=== PATIENT | male | born 2000 | race Caucasian/White ===

== ENCOUNTER 2019-01-05 15:43 | Emergency (ER) | payer OTHER ==
[~2019-01-05] VITALS: Ht 177.8 cm; Wt 75.0 kg
[2019-01-05 17:27] VITALS: BP 128/80
[2019-01-05] MEDS ORDERED: LIDOCAINE 5% TRANSDERMAL PATCH TD ONE (18:45)
[2019-01-05] MEDS ORDERED: KETOROLAC TROMETHAMINE 30 MG/ML VIAL IM ONE (18:45)
== END 2019-01-05 19:51 | disposition home or self-care (01) ==
LOC: EMS 15:43
DX: S62.512A Displaced fracture of proximal phalanx of left thumb, initial encounter for closed fracture (principal); S62.317A Displaced fracture of base of fifth metacarpal bone, left hand, initial encounter for closed fracture; S20.212A Contusion of left front wall of thorax, initial encounter; S09.90XA Unspecified injury of head, initial encounter; V00.131A Fall from skateboard, initial encounter; Y93.51 Activity, roller skating (inline) and skateboarding; Y92.89 Other specified places as the place of occurrence of the external cause; Y99.8 Other external cause status
CPT/HCPCS: 29125; 71101; 73090; 73130; 96372; 99283; J1885

== ENCOUNTER 2019-01-15 18:51 | Emergency (ER) | payer OTHER ==
[~2019-01-15] VITALS: Ht 177.8 cm; Wt 80.0 kg
[2019-01-15] MEDS ORDERED: EPINEPHrine 1:10,000 [1 MG/10 ML] SYRINGE IVP ONE ×2 (18:52)
[2019-01-15 19:17] VITALS: BP 0/0
== END 2019-01-16 02:00 | disposition expired ==
LOC: EMS 18:51
DX: S21.112A Laceration without foreign body of left front wall of thorax without penetration into thoracic cavity, initial encounter (principal); I46.9 Cardiac arrest, cause unspecified; Y04.0XXA Assault by unarmed brawl or fight, initial encounter; Y93.89 Activity, other specified; Y92.830 Public park as the place of occurrence of the external cause; Y99.8 Other external cause status
CPT/HCPCS: 31500; 36415; 36430; 99291; J0171; P9016